=== PATIENT | male | born 1990 | race Caucasian/White ===

== ENCOUNTER 2023-06-02 21:17 | Inpatient (IN) | payer OTHER, SELFPAY ==
[2023-06-02] VITALS (11 sets, daily range): BP systolic 96–122; BP diastolic 60–105; BMI 26.5
--- NOTE | 2023-06-02 16:33 | ED.GENMED ---
History of Present Illness
General
Chief Complaint: Fainting Sensation
Source: patient
Exam Limitations: none
Time Seen by Provider: 06/02/23 16:25
Nursing documentation reviewed up to this point in time: agreed with
History of Present Illness
History of Present Illness:
Patient with history of alcoholism, presents to ED secondary to persistent nausea and vomiting since last alcohol intake 4 days ago. Denies fever or chills. Denies chest pain. Patient reporting shortness of breath along with sensation of 'cold'.
Denies diarrhea. Denies trauma. Per paramedics, patient reportedly had specks of blood with his vomiting episodes today. In addition, during transport to the stretcher, patient had 1 brief episode of syncope, with spontaneous resolution. Patient
was found to be pale and extremely tachycardic at scene. Patient was given Zofran, Ativan, and IV fluids, in route to the hospital.
Past History
Past History
ED Past Medical History: Psychiatric (Depressed. Not suicidal)
ED Past Surgical History: Orthopedic
Review of Systems
Review of Systems
Allergies reviewed?: Yes
All Other Systems: ROS reviewed and negative except as documented in HPI and ROS
Constitutional: Reports no symptoms; Denies fever
EENT: Reports no symptoms
Respiratory: Reports trouble breathing; Denies cough
Cardiac: Reports syncope
ABD/GI: Reports nausea and vomiting
: Reports no symptoms
Musculoskeletal: Reports no symptoms
Skin: Reports no symptoms
Neurological: Reports dizzy and weakness
Phy Exam
Physical Exam
Physical Exam:
Physical Exam
General: mild distress, acutely ill. afebrile. tachycardic. pale
Head: nc/at. eomi
Neck: supple. no meningeal signs. normal posterior pharynx
Heart: tachycardic, no murmur. equal radial pulses.
Lungs: no acute respiratory distress. clear bilaterally
Abdomen: normal bowel sounds. not tender. rectal exam : brown stool, heme negative
Neuro: alert and oriented. no focal neurological deficits
Skin: no rash
Psychiatric: well kept. interactive and cooperative
Extremities: no edema. no calf tenderness.
Course
Orders/Labs/Results
Orders:
Orders
06/02/23 Dinner
NPO
Allow oral meds: No
Allow clear liquids: No
NPO with Ice Chips: No
06/02/23 16:31
EKG [Electrocardiogram (*1)] Urgent
Reason for Study: Syncope
06/02/23 16:43
Type+Screen Urgent
B-Hydroxybutyrate Urgent
Comment: ADD ON
Complete Blood Count/With Diff Urgent
Comprehensive Metabolic Panel Urgent
Lipase Urgent
Magnesium Urgent
Comment: ADD ON
PTT Urgent
Phosphorus Urgent
Comment: ADD ON
Prothrombin Time Urgent
06/02/23 17:00
0.9% Sodium Chloride 1000 ml [Nss] 1,000 ml IV BOLUS
06/02/23 19:14
Add On- LAB Urgent
Tests Added?: Beta-hydroxybutyrate
06/02/23 19:47
Pantoprazole [Protonix IV] 40 mg IV NOW STA
06/02/23 19:53
Octreotide [Sandostatin] 50 mcg IV NOW STA
06/02/23 20:00
0.9% Sodium Chloride 1000 ml [Nss] 1,000 ml Mvi, Adult [Multivitamin] 10 ml Thiamine Injection 100 mg IV 100 mls/hr
06/02/23 20:18
Octreotide Acetate [Sandostatin] 600 mcg 0.9% Sodium Chloride 500 ml [Nss] 500 ml IV NOW
06/02/23 20:43
Insulin Human Regular [Novolin R] 5 units IV NOW STA
06/02/23 20:45
Add On- LAB Urgent
Tests Added?: mag , phos
0.9% Sodium Chloride 1000 ml [Nss] 1,000 ml IV 1,000 mls/hr
Pantoprazole 80 mg/100 ml Nss [Protonix] 80 mg in 100 ml IV Q10H
06/02/23 20:46
Admit/Transfer Patient As Directed
Co-Sign Provider:
Level of Care: Inpatient admission
Assign to:: IMU- Intermediate Care
Physician / Group: lisa martinez
Diagnosis: upper gi bleed , etoh abuse, alcoholic ketoacidosis
Reason for Hospitalization: upper gi bleed , etoh abuse, alcoholic ketoacidosis
Expected length of stay greater than two midnights?: Yes
ELOS- Estimated Length of Stay in days: 4
I certify the patient meets the requirements for IP care: Yes
06/02/23 20:48
Code Status As Directed
Resuscitation Status: Full Code
06/02/23 20:49
Ondansetron Injectable [Zofran] 4 mg .ROUTE .STK-MED ONE
Ondansetron Injectable [Zofran] 4 mg IV NOW STA
06/02/23 20:50
GASTROINTESTINAL CONSULT Routine
Consulting Provider: Juan Manuel Snyder
Was physician already notified: Yes
Reason for consult: upper gi bleed etoh abuse
06/02/23 22:59
0.9% Sodium Chloride [Nss (Preservative Free)] See Protocol IV PRN PRN
Dextrose 50%-Water [Dextrose 50% Syringe] 12.5 grams IV [id number] PRN
FOLic ACID [Folvite] 1 mg 0.9% Sodium Chloride 50 ml [Nss] 50 ml IV DAILYPRN
Glucagon [GlucaGen] 1 mg IM PRN PRN
Lorazepam [Ativan] 1 mg IV Q1HPRN PRN
Lorazepam [Ativan] 1 mg PO Q2HPRN PRN
Lorazepam [Ativan] 2 mg IV Q1HPRN PRN
Ondansetron Injectable [Zofran] 4 mg IV Q6HPRN PRN
06/02/23 22:59
Case Management Consult Once
Case Management Consult: Other
Comment: Substance abuse counseling
DIETARY CONSULT Routine
Reason for Consult: Nutrition support, possible refeeding guidelines
GGTP Urgent
PTT Urgent
Prothrombin Time Urgent
Urinalysis Routine
Urine Drug Abuse Screen Routine
Activity As Directed
Activity Level: As Tolerated
Bedside Glucose Monitoring As Directed
Frequency: AC&HS
Comment: Change to q6h if pt on TPN, tube feeding or not eating
Intake/ Output As Directed
Frequency: Per unit guidelines
MSAS SCORE As Directed
MSAS Score 0-4: Repeat MSAS every 2 hours until 0-4 for three consecutive assessments, then every 4 hours x 48
hours.
MSAS Score 5-7: For MILD withdrawl symptoms. Repeat MSAS and RASS every 2 hours
MSAS Score 8-11: For MODERATE withdrawal symptoms. Repeat MSAS and RASS every 1 hour. Consider ICU or IMU
level of care.
MSAS Score > 11: For SEVERE withdrawal symptoms. Repeat MSAS and RASS every 1 hour. Notify provider, consider
ICU level of care.
MSAS Additional Instructions: If no improvement or no decrease in score from severe to moderate within 12
hours, consult psychiatry
MSAS Notify Provider: Notify provider if patient requires more than 10 mg of Lorazepam in eight hour period.
Pneumatic Compression Sleeves As Directed
Type: Knee high
Vital Signs As Directed
Frequency: Per unit guidelines
Ot Eval And Treat Routine
Pt Eval And Treat Routine
Activity Level: As Tolerated
DX Deep Vein Thrombosis Video Routine
06/03/23 00:00
Thiamine Injection 200 mg IV Q8
06/03/23 01:00
H&H Q8H
06/03/23 06:00
Complete Blood Count/With Diff IN AM
Comprehensive Metabolic Panel IN AM
Glycohemoglobin (HgbA1c) IN AM
06/03/23 07:30
Insulin Aspart Corrective Low [Novolog Flexpen-Low Resistance] See Protocol SC AC
06/03/23 08:00
FOLic ACID [Folvite] 1 mg PO DAILY
06/03/23 09:00
H&H Q8H
06/03/23 17:00
H&H Q8H
06/04/23 01:00
H&H Q8H
06/04/23 06:00
Complete Blood Count/With Diff IN AM
Comprehensive Metabolic Panel IN AM
06/05/23 06:00
Complete Blood Count/With Diff IN AM
Comprehensive Metabolic Panel IN AM
06/06/23 06:00
Complete Blood Count/With Diff IN AM
Comprehensive Metabolic Panel IN AM
06/06/23 08:00
Thiamine HCl [Vitamin B1] 100 mg PO BID
Abnormal Lab Results
06/02/23
16:43
WBC 11.1 H 10^3/uL
(4.8-10.8)
RBC 2.60 L 10^6/uL
(4.70-6.10)
Hgb 8.8 L g/dL
(13.0-18.0)
Hct 25.5 L %
(39.0-52.0)
MCV 98.1 H fL
(80.0-94.0)
MCH 33.8 H pg
(27.0-31.0)
MPV 10.6 H fL
(7.4-10.4)
Abs Immat Gran (auto) 0.1 H 10^3/uL
(0-0.05)
Absolute Neuts (auto) 9.0 H 10^3/uL
(1.4-6.5)
Immature Gran % 0.7 H %
(0-0.5)
Neutrophils % 80.9 H %
(42.2-75.2)
Lymphocytes % 12.5 L %
(20.5-51.1)
PT 15.5 H Sec
(11.4-14.6)
Sodium 131 L mmol/L
(135-145)
Carbon Dioxide 10 L* mmol/L
(22-30)
BUN 48 H mg/dl
(9-20)
Glucose 356 H mg/dl
(70-99)
Calcium 8.3 L mg/dl
(8.4-10.2)
Phosphorus 6.3 H mg/dl
(2.5-4.5)
AST 81 H U/L
(17-59)
ALT 90 H U/L
(0-50)
Total Protein 5.9 L g/dl
(6.3-8.2)
B-Hydroxybutyrate 1.51 H mmol/L
(0.02-0.27)
06/02/23 16:43
06/02/23 16:43
Vital Signs
Initial and Last Documented VS:
Initial Vital Signs
BP
103/70
06/02/23 16:26
Last Documented Vital Signs
Temp Pulse Resp BP Pulse Ox
98.7 F 137 18 99/75 99
06/02/23 23:00 06/02/23 23:13 06/02/23 23:13 06/02/23 23:13 06/02/23 23:13
MDM/Problems Addressed
MDM/Problems Addressed:
H/H noted, along with abnormal electrolytes. Patient with likely alcoholic ketoacidosis. Patient will be admitted for further evaluation and treatment.
Transfusion consent on the chart.
Discussed with GI () via [employer]. Recommends octreotide treatment.
Critical care statement: A total of 40 minutes of critical care time was provided for this patient. This includes management of unstable vital signs, evaluation of the patient at bedside, reviewing the patient's pertinent medical records, discussion
with consultants, review of old EKGs and review of pertinent medical records. This time with separate from time utilized to perform the aforementioned documented procedures
*EKG
Interpreted by ED Provider?: Yes
EKG Intrepretation Date: 06/02/23
Heart Rate: 153
Rate: tachycardiac
Rhythm: sinus
Ottosen: normal axis
Interval: normal interval and normal QT interval
QRS Pattern: normal QRS
*Critical Care Note
Total Time (30-74mins, 75-104mins- exclusive of procedures): 40 min
ED Attending Note
-
Portions of this chart may have been created with voice recognition software.� Occasional wrong word or��sound alike� substitutions may have occurred due to the inherent limitations of voice recognition software.
Discharge Plan
Departure
Patient Disposition: Admit
Date of Disposition: 06/02/23
Time of Disposition: 19:52
Admit to: ICU
Presentation/result/management discussed w/ accepting MD/DO: Hospitalist
Discharge Problem:
Hematemesis, Acute alcoholic gastritis, Anemia
Interventions
Interventions:
*Risk Screen - Suicide Last Done: 06/02/23 23:07
*General Assessment Last Done: 06/02/23 16:41
*Neglect/Abuse Screening Last Done: 06/02/23 16:41
ED- Fall Risk Assessment Last Done: 06/02/23 16:43
*ED COVID-19 Vaccine History Last Done: 06/02/23 16:41
*Nursing Disposition Last Done: 06/02/23 23:09
ED- Cardiac Assessment Last Done: 06/02/23 16:43
ED- Neurological Assessment Last Done: 06/02/23 16:43
Discharge Date and Time
Discharge Date/Time: 06/02/23 23:10
[2023-06-02 16:53] LABS: % Basophils 0.3 % (0-2); % Eosinophils 0.1 % (0-6); % Immature Granulocytes 0.7 % (0-0.5); % Lymphocytes 12.5 % (20.5-51.1); % Monocytes 5.5 % (1.7-9.3); % Neutrophils 80.9 % (42.2-75.2); Absolute Immature Granulocytes 0.1 10^3/uL (0-0.05); Absolute Lymphocytes 1.4 10^3/uL (1.2-3.4); Absolute Monocytes 0.6 10^3/uL (0.1-0.6); Hematocrit 25.5 % (39.0-52.0); Hemoglobin 8.8 g/dL (13.0-18.0); Mean Corp Hgb Conc. 34.5 g/dL (33.0-37.0); Mean Corpuscular Hgb 33.8 pg (27.0-31.0); Mean Corpuscular Volume 98.1 fL (80.0-94.0); Mean Platelet Volume 10.6 fL (7.4-10.4); Nucleated Red Blood Cells % 0 % (-); Platelet Count 247 10^3/uL (130-400); Red Cell Dist. Width 12.5 % (11.5-14.5); White Blood Cell Count 11.1 10^3/uL (4.8-10.8)
[2023-06-02] MEDS: NSS 1000 IV ×2 (17:01→21:12)
[2023-06-02 17:04] LABS: INR 1.25; PT 15.5 Sec (11.4-14.6)
[2023-06-02 17:05] LABS: APTT 27.1 Sec (23.4-35.0)
[2023-06-02 17:18] LABS: AST (SGOT) 81 U/L (17-59); Albumin 3.8 g/dl (3.5-5.0); Alkaline Phosphatase 40 U/L (38-126); Blood Urea Nitrogen 48 mg/dl (9-20); Calcium 8.3 mg/dl (8.4-10.2); Carbon Dioxide 10 mmol/L (22-30); Chloride 99 mmol/L (98-107); Estimated Creatinine Clearance 97 ml/min; Glucose 356 mg/dl (70-99); Lipase 77 U/L (23-300); Potassium 4.7 mmol/L (3.5-5.1); Sodium 131 mmol/L (135-145); Total Bilirubin 1.3 mg/dl (0.2-1.3); Total Protein 5.9 g/dl (6.3-8.2); eGFR > 60.00
[2023-06-02 17:27] LABS: ALT (SGPT) 90 U/L (0-50)
[2023-06-02] MEDS: MULTIVITAMIN 1011 ML IV (20:00)
[2023-06-02] MEDS: MULTIVITAMIN 1011 MG IV (20:00)
--- NOTE | 2023-06-02 20:03 | HPS.HSE ---
Addendum entered and electronically signed by Emily Bowers MD 06/02/23 21:58:
Patient seen and evaluated with JESÚS. Agree with findings and H&P and agree with the assessment and plan as stated in the note.
Briefly this is a 33-year-old with history of alcohol dependence and binge drinking who presents to the emergency department after 4 days of persistent nausea and vomiting. Her last drink was around 3 days ago. He had bloody emesis with dark black
clots 3-4 times a day in the time. In addition to alcohol patient is also taking Advil daily. Noted to have a history of alcohol abuse with withdrawal seizures, alcohol gastritis transaminitis. No known history of cirrhosis.
On arrival in the ED the patient was tachycardic to 153, normotensive with oxygen saturation of 100%. He was tremulous. ECG with sinus tachycardia no acute ST or T wave changes. His labs are notable for hemoglobin of 8.8 which is down from around
12 his baseline. INR was 1.2. He had a bicarb of 10 glucose of 356 and a BUN of 40 with a creatinine of 1.2. AST 81 ALT 90.
Suspect acute upper GI bleed due to alcoholic gastritis and NSAIDS vs peptic ulcer. Unlikely varices. Likely active ongoing bleeding given tachycardia.
- IMU admission. NPO. PPI gtt. Octroetide gtt
- type and screen transfuse 1 unit now and for Hgb > 8
- 2 L iv fluids then maintenance
- h&H q 8
- GI notified
ETOH withdrawal - 3 days since last drink. Lower risk.
- lorazepam CIWA protocol
- iv thiamine, folate
Severe metabolic acidosis with anion gap. Glucose elevated to 325. Suspected AKA and less-likely DKA but labs suggestive of new onset DM.
- insulin 5 units x 1 after 2 L bolus
- sliding scale insulin q6 for now and monitor gap with chemistry q8.
- a1c in am
- continue aggressive hydration for AKA.
Full code
Original Note:
Family Physician
-
Family Physician: JESÚS Alexander
Chief Complaint
-
Nausea, vomiting, tachypnea, alcohol abuse
History of Present Illness
33-year-old male with persistent nausea and vomiting over the past 4 days. He had brief episode of sync[facility] He was given IV Ativan Zofran and fluids en route to the
hospital by EMS. He reports vomiting dark black clots 3-4 times a day he also reports taking nightly Advil PM 2 tablets every evening 400 mg total. He has history of alcohol abuse . His last drink was 3 days ago on he typically drinks a
liter of vodka over 3-day.He has past medical history of alcohol abuse/alcohol withdrawal seizure April 2022, alcohol gastritis, DTs, chronic transaminitis.
Medical History
Past Medical History
Past Medical History: Reports HTN and Other (Alcohol abuse, alcohol withdrawal seizure April 2022, HTN, alcoholic gastritis)
Past Surgical History: Reports Orthopedic (Right foot tendon repair)
Social History
Tobacco: Non-smoker
Alcohol: Daily (Drinks 1 L bottle of vodka over 3 days)
Drug: None
Personal: Single
Living: With Family
Employment: Not Employed
Family History
Family History: Other (Father DM2)
Allergies / Home Medications
Allergies reflects when Allergies were last updated in [employer].
Home Medications with original date entered in [employer]
Allergy/Medication List:
Allergies
Allergy/AdvReac Type Severity Reaction Status Date / Time
No Known Allergies Allergy Verified 06/02/23 16:29
Home Medications
folic acid 1 mg tablet 1 mg PO DAILY #12 tabs 05/05/22
multivitamin 1 tab PO DAILY #30 tabs 05/05/22
ascorbic acid (vitamin C) 500 mg tablet (Vitamin C) 500 mg PO DAILY 06/02/23
cholecalciferol (vitamin D3) 1 tab PO DAILY PRN supplement 06/02/23
cyanocobalamin (vitamin B-12) 1,000 mcg tablet 1,000 mcg PO DAILY 06/02/23
ibuprofen-diphenhydramine citrate 200 mg-38 mg tablet (Advil PM) 2 tab PO HS 06/02/23
lisinopril 10 mg tablet 20 mg PO DAILY 06/02/23
thiamine HCl (vitamin B1) 100 mg tablet 100 mg PO DAILY 06/02/23
Review of Systems
-
History Source: Patient and Family (Mother at bedside)
A 12 point ROS was completed and negative except as noted: Yes
Constitutional: Reports Fatigue; Denies Fever
EENT: Denies Sore Throat or Runny Nose
Respiratory: Denies Cough or Trouble Breathing
Cardiac: Reports Palpitations; Denies Chest Pain, Diaphoresis or Syncope
Abdomen/GI: Reports Abdominal Pain (Right upper quadrant), Nausea, Vomiting, Constipated and Other (Vomiting clots 3-4 times today); Denies Diarrhea
: Denies Dysuria, Frequency, Flank Pain, Incontinence, Difficulty Voiding or Urgency
Musculoskeletal: Denies Joint Pain or Edema
Skin: Denies Itching or Rash
Neurological: Denies Dizzy or Headache
Endocrine: Reports No Symptoms
Hematologic/Lymphatic: Reports No Symptoms
Psych: Reports Calm
Physical Exam
Vital Signs
Vital Signs
Temp Pulse Resp BP Pulse Ox
97.8 F 153 27 121/105 100
06/02/23 16:33 06/02/23 19:00 06/02/23 16:45 06/02/23 19:00 06/02/23 19:00
Physical Exam
General: Comfortable and Conversant; No Fever or Chills
HEENT: NormoCephalic, Anicteric, No Ptosis and Other (Dry oral mucosa)
Respiratory: Clear; No Wheezes, Rales or Rhonchi
Cardiac: S1/S2 and Tachycardia (Sinus tachycardia); No Murmur, Rub, Gallop or Peripheral Edema
Breast: Deferred by me
GI: Soft, Non Distended, Normal Bowel Sounds and Tender (Right upper quadrant)
Rectal: Hem Negative (Brown Per, ER)
Genito-urinary: Deferred by me
Musculoskeletal: No Clubbing, No Cyanosis and No Edema
Skin: Warm and Dry; No Rash
Neuro: AO x 3, No Motor Deficits, Nonfocal/grossly intact and No Sensory Deficits; No Slurred Speech, Facial Droop or Tremors
Psych: Calm
Laboratory Results
-
06/02/23 16:43
06/02/23 16:43
Laboratory Results
PT 15.5 Sec (11.4-14.6) H 06/02/23 16:43
INR 1.25 06/02/23 16:43
APTT 27.1 Sec (23.4-35.0) 06/02/23 16:43
Total Bilirubin 1.3 mg/dl (0.2-1.3) 06/02/23 16:43
AST 81 U/L (17-59) H 06/02/23 16:43
ALT 90 U/L (0-50) H 06/02/23 16:43
Alkaline Phosphatase 40 U/L (38-126) 06/02/23 16:43
Lipase 77 U/L (23-300) 06/02/23 16:43
Data Reviewed
-
Lab Data: Labs Reviewed by me
Impression/Plan
-
Impression/plan:
Admit to IMU
#Acute anemia/hematemesis suspect upper GI bleed 2/2 alcoholic gastritis/poss bleeding ulcer
Hgb 8.8 was 14.2 05/05/2022
Stool heme brown negative
-Consult GI
-Octreotide drip
-N.p.o.
-IV PPI drip
-Follow H&H every 8 hours
-Type and screen obtained
#Alcoholic ketoacidosis
BS> 356, anion gap 22
-Check magnesium, phosphate
-IV thiamine, IV folate
Iv banana nag given in ER , 1 liter NSS
-Insulin 5 units regular now Accu-Cheks with SSI low
#Alcohol abuse history of alcohol withdrawal/alcohol withdrawal seizures
#Last withdrawal seizure April 2022
#Hx of DTs
Last drink 3 days ago typically drinks 1 L of vodka every 3 days
MSAs screen protocol
-IV thiamine, IV folate
#HTN
BP 121/105
Hold lisinopril
#Tachycardia secondary to volume depletion/alcohol withdrawal/ketoacidosis
EKG sinus tach 153 bpm, QTc 526 MS
-IV total 2 L followed by IV banana bag
#Chronic transaminitis
Follow CMP
DVT prophylaxis
SCDs
Full code
[2023-06-02 20:20] LABS: B-Hydroxybutyrate 1.51 mmol/L (0.02-0.27)
[2023-06-02] MEDS: SANDOSTATIN 500.600000000000023 MCG IV (20:37)
[2023-06-02] MEDS: SANDOSTATIN 50 MCG IV (20:37)
[2023-06-02] MEDS: PROTONIX IV 40 MG IV (20:37)
[2023-06-02] MEDS: NOVOLIN R 5 UNITS IV (21:10)
[2023-06-02] MEDS: ZOFRAN 4 MG IV (21:11)
[2023-06-02 21:44] LABS: Magnesium 2.1 mg/dl (1.6-2.3); Phosphorus 6.3 mg/dl (2.5-4.5)
[2023-06-02] MEDS: PROTONIX 100 IV (21:51)
[2023-06-02 22:15] LABS: Glucose - Point of Care 75 mg/dl (70-99)
[2023-06-02] MEDS: THIAMINE INJECTION 200 MG IV (23:58)
[2023-06-03] VITALS (32 sets, daily range): BP systolic 15–147; BP diastolic 60–97; PULSE 102–168; O2SAT 97; BMI 26.5
[2023-06-03] MEDS: ATIVAN 1 MG IV ×2 (00:06→09:59)
--- NOTE | 2023-06-03 00:30 | PTCARENOTE ---
PT from ED with Protonix, banana bag and Octreotide hanging. Pt able to complete assessment with RN. Pt appearing pleasant and cooperative. MSAS completed,score 5. Pt NPO, night SENIOR MATERIALS SCIENTIST placed new order for Ativan to be IV for score of 5. Assessment care
and vitals as charted.
[2023-06-03 00:45] LABS: GGTP 96 U/L (15-73)
[2023-06-03 01:43] LABS: Hematocrit 18.8 % (39.0-52.0); Hemoglobin 6.8 g/dL (13.0-18.0)
[2023-06-03 01:52] LABS: Amphetamines Negative (Negative); Barbiturates Negative (Negative); Benzodiazepines Positive (Negative); Buprenorphine Negative (Negative); Cocaine Negative (Negative); Marijuana Negative (Negative); Methadone Negative (Negative); Methamphetamines Negative (Negative); Opiates Negative (Negative); Phencyclidine Negative (Negative); Tricyclic Antidepressants Negative (Negative)
[2023-06-03 02:00] LABS: Urine Albumin Negative (Neg - Trace); Urine Bilirubin Negative (Negative); Urine Character Clear (Clear); Urine Color Yellow; Urine Glucose 1+ (Negative); Urine Ketone 2+ (Negative); Urine Leukocyte Negative (Negative); Urine Nitrite Negative (Negative); Urine Occult Blood Negative (Negative); Urine Urobilinogen Negative (Neg - 1+)
[2023-06-03 02:02] LABS: APTT 27.9 Sec (23.4-35.0); INR 1.18; PT 14.8 Sec (11.4-14.6)
[2023-06-03 02:08] LABS: Fentanyl, Urine Negative (Negative)
--- NOTE | 2023-06-03 02:44 | PTCARENOTE ---
Pt follow up H&H 6.8/18.8. Night WASHER ENGINEER HELPER made aware, 2 units PRBC ordered. Pt vitals 103/71, HR 104, temp 98.4 RR15, SPO2 97% RA. Pt MSAS last score 4.
--- NOTE | 2023-06-03 02:49 | PTCARENOTE ---
Addendum entered by Herlinda Hastings RN 06/03/23 07:51:
Pt has 3 IVs, Night SECURITY ENGINEER TT about pausing one with NS w/vit to start blood transfusion.
Original Note:
Pt follow up H&H 6.8/18.8. Night SECURITY ENGINEER made aware, 2 units PRBC ordered. Education given to Pt. Pt vitals 103/71, HR 104, temp 98.4 RR15, SPO2 97% RA. Pt MSAS last score 4.
[2023-06-03 06:35] LABS: Glucose - Point of Care 115 mg/dl (70-99)
[2023-06-03 07:01] LABS: ALT (SGPT) 89 U/L (0-50); AST (SGOT) 83 U/L (17-59); Albumin 3.6 g/dl (3.5-5.0); Alkaline Phosphatase 34 U/L (38-126); Blood Urea Nitrogen 40 mg/dl (9-20); Carbon Dioxide 20 mmol/L (22-30); Chloride 105 mmol/L (98-107); Estimated Creatinine Clearance 116 ml/min; Glucose 108 mg/dl (70-99); Potassium 4.3 mmol/L (3.5-5.1); Sodium 135 mmol/L (135-145); Total Bilirubin 1.1 mg/dl (0.2-1.3); Total Protein 5.7 g/dl (6.3-8.2); eGFR > 60.00
[2023-06-03] MEDS: PROTONIX 100 IV (07:02)
--- NOTE | 2023-06-03 08:13 | W.PN.HOSP.TC ---
Today's Communication/Plan
-
see bold
Assessment / Plan
Assessment / Plan
Gen: NAD, AAOx3.
Eyes: EOMI, PERRLA, no scleral icterus.
Neck: supple.
CV: tachy, reg rhythm, +S1/S2, no m/r/g.
Resp: CTAB, no rales, wheezes, or rhonchi.
Abd: +BS, soft, NT, ND
Skin: No rashes.
Neuro: CN 2-12 intact, non-focal.
Psych: Normal mood and affect.
Acute blood loss anemia due to acute upper GI bleed likely due to alcoholic gastritis and NSAIDS vs peptic ulcer:
-cont PPI gtt, NPO
-was on Octreotide gtt, no off
-cont IVFs
-trend Hb
-s/p 2U pRBCs
-EGD today as per discussion with Dr. Snyder
Acute ETOH withdrawal:
-MSAS protocol (Ativan PRN)
-cont thiamine/folate
Severe anion gap metabolic acidosis:
-likely starvation ketosis
-AG now closed
-SSI/accuchecks
-no prior diagnosis of DM2, a1c pending
FULL/SCDs
Total time spent on today's encounter was 50 minutes which included time spent in counseling the patient/family regarding diagnosis and treatment plan as listed above, goals of care, and symptom management. Case was discussed with nursing staff,
specialists, and care coordinators/case management. All labs and imaging personally reviewed by me. Remainder the time spent in detailed review of previous records, lab data, imaging, and other medical provider documentation.
Anticipated Discharge: > 48 hours
Subjective/Interval History
-
Date of Service: June 03, 2023
Denies diaphoresis/AH/VH. Reports dark stool this AM.
Objective Data
-
Labs:
Laboratory Results
06/03/23 06/03/23 06/03/23
01:23 06:00 06:30
WBC Pending
Hgb 6.8 L* D Pending
Hct 18.8 L* Pending
Plt Count Pending
PT 14.8 H
INR 1.18
APTT 27.9
Sodium 135
Potassium 4.3
Chloride 105
Carbon Dioxide 20 L
BUN 40 H
Creatinine 1.0
Glucose 108 H
Calcium 8.0 L
Total Bilirubin 1.1
AST 83 H
ALT 89 H
Alkaline Phosphatase 34 L
06/03/23 06/03/23
09:00 17:00
WBC
Hgb Pending Pending
Hct Pending Pending
Plt Count
PT
INR
APTT
Sodium
Potassium
Chloride
Carbon Dioxide
BUN
Creatinine
Glucose
Calcium
Total Bilirubin
AST
ALT
Alkaline Phosphatase
Vital Signs:
Vital Signs
Temp Pulse Resp BP Pulse Ox
99.4 F 95 14 115/75 95
06/03/23 08:03 06/03/23 08:03 06/03/23 08:03 06/03/23 08:03 06/03/23 08:03
I&O
06/02/23 06/03/23 06/04/23
06:59 06:59 06:59
Intake Total 1150 / 1150 250 / 250
Output Total 1150 / 1150
Balance 0 / 0 250 / 250
--- NOTE | 2023-06-03 08:14 | PTCARENOTE ---
Addendum entered by Georgina Marcus RN 06/03/23 19:37:
Two units PRBC's
Original Note:
Patient received to units of PRBC's without incident. Patient MSAS score 4. Patient AAOX3 alert,calm and pleasant. Vital signs stable. Sp02 96% on room air. Patient denies abdominal pain or nausea. Protonix drip and fluids infusing as ordered.
EGD today. Will monitor.
[2023-06-03 09:05] LABS: Glucose - Point of Care 109 mg/dl (70-99)
--- NOTE | 2023-06-03 09:21 | CON.GI ---
Addendum entered and electronically signed by Juan Manuel Snyder MD 06/03/23 09:49:
I saw and examined the patient.
The FAMILY MEDIATOR or PA's note was reviewed and I agree with the note.
Comment: 33yo male presents with hematemesis. He drinks alcohol regularly and friend convinced him to quit and he stopped. Then began with vomiting several times bringing up bilious material, then blood clot/black material. Hgb 8.8 on
admission, dropped to 6.8. He takes Advil PM as well to help with sleep. US shows hepatomegaly and fatty liver. INR and plt count normal
REC:
Octreotide started initially, can stop if EGD shows no varices
EGD today, possible Lucrecia-Chung tear or ulcer
Encouraged him to continue EtOH abstinence
Original Note:
Consultation
-
Date/Time Consultation Requested: 06/02/232049
Date/Time Consultation Performed: 06/03/23829
Requesting Provider: JESÚS Hernandez
Performing Provider: Dr. Snyder/JESÚS Bell
Reason for Consultation: GI bleed
Medical History
Chief Complaint / HPI
Chief Complaint: syncope
History of Present Illness:
33-year-old male with past medical history of hypertension, ETOH withdrawal seizure and alcohol abuse presents to the emergency room with hematemesis as well as persistent vomiting and near syncope. Patient states that he has a prolonged history of
alcoholism drinking over a gallon of vodka a week and that on he decided to try to quit again. He states he started going through withdrawal symptoms on Saturday. He states he started to have tremors and started vomiting. He states that
this was initially bilious and that on Saturday he started to note that he had black specks in it. He started having shakes and chills even more pronounced and he started feeling like he was going to faint. At this point he was brought to the
emergency room. Patient also states that for the past week he has been taking 2 Advil PM every evening to help him sleep. The patient also had melena this morning. Whereas he had not had a bowel movement in over a week. His hemoglobin has gone
down to 6.8 from 8.8 on arrival. He has received 1 unit of packed red blood cells and we are awaiting repeat CBC at this time. His prior hemoglobin in April 2022 was 14.2. His platelet count is 247, INR is 1.8, BUN is 40 down from 48, total
bilirubin is 1.1 down from 1.3, AST is 83 up from 81, ALT is 89 down from 90 alk phos is 34 down from 40. Lipase is 77. Patient's labs also showed severe metabolic acidosis with anion gap. He was also given significant IV hydration with 2 L IV
fluid bolus. He does have ketones as well. The patient is not tremulous at this time. He denies any fevers, hematochezia, dysphagia or odynophagia. He denies any early satiety or unintentional weight loss. He does state that he is currently
without a job and he is living with his parents and his father who has ALS. The patient has had no prior GI bleeds. He has never had an endoscopy or colonoscopy. He states that he tried to become sober a couple months back but then 'fell off the
wagon' about 1 to 2 months ago.
Past Medical History
Past Medical History: HTN, Seizures (ETOH withdrawal) and Other (ETOH abuse)
Past Surgical History: Other (left foot tendon repair)
Social History
Tobacco: Non-Smoker
Alcohol: Chronic Alcoholic
Drug: None
Personal: Single
Living: With Family
Employment: Not Employed
Family History
Family History: Other (No fam Hx of GI malignancy or IBD)
Allergies / Home Medications
Allergy/AdvReac Type Severity Reaction Status Date / Time
No Known Allergies Allergy Verified 06/02/23 16:29
Medication Instructions Recorded
folic acid 1 mg tablet 1 mg PO DAILY #12 tabs 05/05/22
multivitamin 1 tab PO DAILY #30 tabs 05/05/22
ascorbic acid (vitamin C) 500 mg 500 mg PO DAILY Supplement 06/02/23
tablet (Vitamin C)
cholecalciferol (vitamin D3) 1 tab PO DAILY PRN supplement 06/02/23
cyanocobalamin (vitamin B-12) 1,000 mcg PO DAILY Supplement 06/02/23
1,000 mcg tablet
ibuprofen-diphenhydramine citrate 2 tab PO HS Sleep 06/02/23
200 mg-38 mg tablet (Advil PM)
lisinopril 10 mg tablet 20 mg PO DAILY Blood Pressure 06/02/23
thiamine HCl (vitamin B1) 100 mg 100 mg PO DAILY Supplement 06/02/23
tablet
Review of Systems
-
All other systems: A 12 pt ROS was Negative except as stated above in HPI
Vital Signs
Temp Pulse Resp BP Pulse Ox
99.4 F 95 14 115/75 95
06/03/23 08:03 06/03/23 08:03 06/03/23 08:03 06/03/23 08:03 06/03/23 08:03
Physical Exam
Exam
General: No Apparent Distress
HEENT: Anicteric
Respiratory: Clear
Cardiac: Regular Rhythm (HR 100)
GI: Soft, Non Tender, Non Distended and Normal Bowel Sounds
Musculoskeletal: No Edema
Skin: Warm and Dry
Neuro: AO x 3
Psych: Calm
Results
WBC 11.1 10^3/uL (4.8-10.8) H 06/02/23 16:43
Hgb 6.8 g/dL (13.0-18.0) L* D 06/03/23 01:23
Hct 18.8 % (39.0-52.0) L* 06/03/23 01:23
MCV 98.1 fL (80.0-94.0) H 06/02/23 16:43
Plt Count 247 10^3/uL (130-400) 06/02/23 16:43
Absolute Neuts (auto) 9.0 10^3/uL (1.4-6.5) H 06/02/23 16:43
PT 14.8 Sec (11.4-14.6) H 06/03/23 01:23
INR 1.18 06/03/23 01:23
APTT 27.9 Sec (23.4-35.0) 06/03/23 01:23
Sodium 135 mmol/L (135-145) 06/03/23 06:30
Potassium 4.3 mmol/L (3.5-5.1) 06/03/23 06:30
Chloride 105 mmol/L (98-107) 06/03/23 06:30
Carbon Dioxide 20 mmol/L (22-30) L 06/03/23 06:30
BUN 40 mg/dl (9-20) H 06/03/23 06:30
Creatinine 1.0 mg/dL (0.7-1.3) 06/03/23 06:30
Calcium 8.0 mg/dl (8.4-10.2) L 06/03/23 06:30
Total Bilirubin 1.1 mg/dl (0.2-1.3) 06/03/23 06:30
AST 83 U/L (17-59) H 06/03/23 06:30
ALT 89 U/L (0-50) H 06/03/23 06:30
Alkaline Phosphatase 34 U/L (38-126) L 06/03/23 06:30
Lipase 77 U/L (23-300) 06/02/23 16:43
Diagnostic Image Results:
none currently
Prior GI Procedures:
EGD: none
Colonoscopy: none
Assessment / Plan
-
33-year-old male with past medical history of hypertension, ETOH withdrawal seizure and alcohol abuse presents to the emergency room with hematemesis as well as persistent vomiting and near syncope. Patient states that he has a prolonged history of
alcoholism drinking over a gallon of vodka a week and that on he decided to try to quit again. He states he started going through withdrawal symptoms on Saturday. He states he started to have tremors and started vomiting. He states that
this was initially bilious and that on Saturday he started to note that he had black specks in it. He started having shakes and chills even more pronounced and he started feeling like he was going to faint. At this point he was brought to the
emergency room. Patient also states that for the past week he has been taking 2 Advil PM every evening to help him sleep. The patient also had melena this morning. Whereas he had not had a bowel movement in over a week. His hemoglobin has gone
down to 6.8 from 8.8 on arrival. He has received 1 unit of packed red blood cells and we are awaiting repeat CBC at this time.
Impression:
Upper GI Bleed
ETOH abuse/withdrawal
Metabolic acidosis
Plan:
-EGD today
-Await repeat CBC, last Hgb 6.8-> had 1 unit PRBC transfused awaiting follow up.
-Continue Pantoprazole gtt
-Continue Octreotide gtt for now
-Continue ETOH withdrawal protocol
-Discussed avoidance of NSAIDs
-Also discussed ETOH cessation at length
-Further recommendations post EGD.
-
-
Thank you for consultation and allowing me to participate in the patient's care. Please call the neon molder GI physician during the after hours with any questions or concerns.
[2023-06-03 09:59] LABS: % Basophils 0.7 % (0-2); % Immature Granulocytes 0.4 % (0-0.5); % Lymphocytes 18.2 % (20.5-51.1); % Monocytes 7.2 % (1.7-9.3); % Neutrophils 73.5 % (42.2-75.2); Absolute Basophils 0.1 10^3/uL (0-0.2); Absolute Monocytes 0.8 10^3/uL (0.1-0.6); Absolute Neutrophils 7.9 10^3/uL (1.4-6.5); Hematocrit 25.9 % (39.0-52.0); Mean Corp Hgb Conc. 35.1 g/dL (33.0-37.0); Mean Corpuscular Volume 91.2 fL (80.0-94.0); Mean Platelet Volume 11.1 fL (7.4-10.4); Nucleated Red Blood Cells % 0 % (-); Platelet Count 156 10^3/uL (130-400); Red Blood Cell Count 2.84 10^6/uL (4.70-6.10); Red Cell Dist. Width 14.8 % (11.5-14.5); White Blood Cell Count 10.7 10^3/uL (4.8-10.8)
[2023-06-03 10:12] LABS: Hemoglobin 9.1 g/dL (13.0-18.0)
[2023-06-03] MEDS: NSS 1000 IV ×2 (10:43→19:38)
[2023-06-03] MEDS: THIAMINE INJECTION 200 MG IV ×2 (10:44→18:01)
[2023-06-03] MEDS: FOLVITE 50.2000000000000028 MG IV (11:50)
[2023-06-03 12:01] LABS: Glucose - Point of Care 112 mg/dl (70-99)
[2023-06-03] MEDS: FOLVITE PO (12:28)
--- NOTE | 2023-06-03 12:43 | PTCARENOTE ---
Patient off unit to GI lab for EGD.
--- NOTE | 2023-06-03 13:32 | W.PN.UPDATE ---
Update Note
Progress Note Update
EGD done
Small Lucrecia-Chung tear with overlying clot
No active bleeding
REC:
Clears
Advance diet tomorrow
Protonix daily
d/c Octreotide
[2023-06-03 13:46] LABS: Glucose - Point of Care 93 mg/dl (70-99)
[2023-06-03 14:06] LABS: Glycohemoglobin (HgbA1c) 5.3 % (4.0-5.6)
--- NOTE | 2023-06-03 14:15 | PTCARENOTE ---
Patient back from GI lab. AAO X3. Clear liquids ordered. Vital signs stable. MSAS score 3. IV fluids NSS @ 125 mls/hr to continue. Will monitor.
[2023-06-03 18:27] LABS: Glucose - Point of Care 81 mg/dl (70-99)
[2023-06-03 18:36] LABS: Hematocrit 21.6 % (39.0-52.0); Hemoglobin 7.9 g/dL (13.0-18.0)
--- NOTE | 2023-06-03 18:50 | PTCARENOTE ---
Patient tolerating clear liquid diet. MSAS score have been 3 and 4's. Patient ambulated to bathroom with assistance x1. Denies any pain or nausea. Patient's mom in room at bedside.
[2023-06-03] MEDS: TYLENOL 650 MG PO (21:58)
[2023-06-03 22:01] LABS: Glucose - Point of Care 83 mg/dl (70-99)
--- NOTE | 2023-06-03 22:42 | PTCARENOTE ---
Caring for pt overnight. pt aaox3, seems anxious. denies pain. no signs of bleeding, no dizziness. VSS. SR/ST on monitor. contacted JESÚS for tylenol for pt c/o slight DOW. IVF running. no other issues at this time. will monitor.
[2023-06-04] VITALS (18 sets, daily range): BP systolic 95–161; BP diastolic 65–104
[2023-06-04] MEDS: THIAMINE INJECTION 200 MG IV ×3 (00:12→16:36)
[2023-06-04 03:02] LABS: Hematocrit 21.4 % (39.0-52.0); Hemoglobin 7.5 g/dL (13.0-18.0)
[2023-06-04] MEDS: NSS 1000 IV (05:42)
[2023-06-04 06:13] LABS: % Basophils 0.6 % (0-2); % Eosinophils 1.2 % (0-6); % Immature Granulocytes 0.5 % (0-0.5); % Lymphocytes 21.7 % (20.5-51.1); % Monocytes 5.5 % (1.7-9.3); % Neutrophils 70.5 % (42.2-75.2); Absolute Basophils 0.1 10^3/uL (0-0.2); Absolute Eosinophils 0.1 10^3/uL (0-0.7); Absolute Lymphocytes 1.8 10^3/uL (1.2-3.4); Absolute Monocytes 0.4 10^3/uL (0.1-0.6); Absolute Neutrophils 5.7 10^3/uL (1.4-6.5); Hematocrit 21.4 % (39.0-52.0); Hemoglobin 7.3 g/dL (13.0-18.0); Mean Corp Hgb Conc. 34.1 g/dL (33.0-37.0); Mean Corpuscular Hgb 31.9 pg (27.0-31.0); Mean Corpuscular Volume 93.4 fL (80.0-94.0); Mean Platelet Volume 10.7 fL (7.4-10.4); Nucleated Red Blood Cells % 0 % (-); Platelet Count 116 10^3/uL (130-400); Red Blood Cell Count 2.29 10^6/uL (4.70-6.10); Red Cell Dist. Width 15.5 % (11.5-14.5); White Blood Cell Count 8.1 10^3/uL (4.8-10.8)
[2023-06-04 06:33] LABS: ALT (SGPT) 158 U/L (0-50); AST (SGOT) 243 U/L (17-59); Albumin 3.2 g/dl (3.5-5.0); Alkaline Phosphatase 38 U/L (38-126); Blood Urea Nitrogen 12 mg/dl (9-20); Calcium 7.9 mg/dl (8.4-10.2); Carbon Dioxide 22 mmol/L (22-30); Chloride 110 mmol/L (98-107); Estimated Creatinine Clearance > 125 ml/min; Glucose 81 mg/dl (70-99); Potassium 3.7 mmol/L (3.5-5.1); Sodium 137 mmol/L (135-145); Total Bilirubin 0.5 mg/dl (0.2-1.3); Total Protein 5.3 g/dl (6.3-8.2); eGFR > 60.00
[2023-06-04 08:03] LABS: Glucose - Point of Care 88 mg/dl (70-99)
[2023-06-04] MEDS: FOLVITE 1 MG PO (08:12)
[2023-06-04] MEDS: NSS (PRESERVATIVE FREE) 10 ML IV (08:12)
[2023-06-04] MEDS: PROTONIX IV 40 MG IV (08:13)
--- NOTE | 2023-06-04 09:16 | W.PN.GI.CBS2 ---
Addendum entered and electronically signed by Aguila Martinez MD 06/04/23 13:38:
Elevated LFTs likely due to EtOH reviewed with pt
Addendum entered and electronically signed by Aguila Martinez MD 06/04/23 13:36:
I saw and examined the patient.
The PROPERTY CLERK or PA's note was reviewed and I agree with the note.
Comment: 33 yo M pmh EtOH withdrawal sz and EtOH abuse p/w hematemesis s/p EGD yesterday with [facility] with clot with Dr. Snyder.
Slow drift down of Hb today may be equilibration no further bleeding.
Clear liquid diet, PPI gtt, s/p 1 U PRBC, trend H/H, monitor for signs of overt bleeding.
Stressed to pt importance of ETOH cessation.
As below limited by antiemetics with QTc- ordered for tigan prn.
Original Note:
Today's Communication / Plan
-
As per plan
-Continue clears today
Assessment / Plan
-
33-year-old male with past medical history of hypertension, ETOH withdrawal seizure and alcohol abuse presents to the emergency room with hematemesis as well as persistent vomiting and near syncope. Patient states that he has a prolonged history of
alcoholism drinking over a gallon of vodka a week and that on he decided to try to quit again. He states he started going through withdrawal symptoms on Saturday. He states he started to have tremors and started vomiting. He states that
this was initially bilious and that on Saturday he started to note that he had black specks in it. He started having shakes and chills even more pronounced and he started feeling like he was going to faint. At this point he was brought to the
emergency room. Patient also states that for the past week he has been taking 2 Advil PM every evening to help him sleep. The patient also had melena this morning. Whereas he had not had a bowel movement in over a week. His hemoglobin has gone
down to 6.8 from 8.8 on arrival. He has received 1 unit of packed red blood cells and we are awaiting repeat CBC at this time.
Impression:
Upper GI Bleed, Lucrecia-Chung tear seen
ETOH abuse/withdrawal
Metabolic acidosis
Plan:
-Continue clear liquid diet today as patient had a drop in hemoglobin
-Watch for signs of GI bleeding, if patient equilibrates tomorrow we will likely advance diet. This might be secondary to IV fluids
-Would prefer to give patient [id number] antiemetics however QTc is elevated at 526. If necessary would use prochlorperazine. Patient is quite comfortable at the present time as he is getting lorazepam for alcohol withdrawal.
-Discussed with patient that if he has any signs of nausea to notify nursing immediately to prevent dry heaving or vomiting in light of Lucrecia-Chung tear.
-Continue pantoprazole daily
-Trend labs
-Continue ETOH withdrawal protocol
-Discussed avoidance of NSAIDs
-Also discussed ETOH cessation at length
Subjective
Subjective
Date of Service: June 04, 2023
Patient with no bowel movements since arrival. Hemoglobin is currently 7.3 down from 9.1 yesterday however patient is also receiving IV fluids at 125 cc an hour. BUN has decreased from 40 to 12 this morning patient is on a clear liquid diet.
Vital signs are stable, heart rate 80, blood pressure 137/93. Whereas yesterday he is blood pressure was as low as 93/74 and his heart rate as high as 143. Patient denies any abdominal pain, nausea, tremors and feels quite calm at the present
time. EGD performed on 06/03/2023 shows small nonbleeding Lucrecia-Chung tear with stigmata of recent bleeding. Stomach was normal. Examined duodenum normal.
Objective
Data Reviewed
Laboratory Data:
Laboratory Results
06/04/23 05:48
06/04/23 05:48
Laboratory Results
PT 14.8 Sec (11.4-14.6) H 06/03/23 01:23
INR 1.18 06/03/23 01:23
APTT 27.9 Sec (23.4-35.0) 06/03/23 01:23
Phosphorus 6.3 mg/dl (2.5-4.5) H 06/02/23 16:43
Magnesium 2.1 mg/dl (1.6-2.3) 06/02/23 16:43
Total Bilirubin 0.5 mg/dl (0.2-1.3) 06/04/23 05:48
AST 243 U/L (17-59) H 06/04/23 05:48
ALT 158 U/L (0-50) H 06/04/23 05:48
Alkaline Phosphatase 38 U/L (38-126) 06/04/23 05:48
Lipase 77 U/L (23-300) 06/02/23 16:43
Vital Signs and I&O:
Vital Signs
Temp Pulse Resp BP Pulse Ox
98.9 F 80 13 137/93 96
06/04/23 03:58 06/04/23 06:00 06/04/23 06:00 06/04/23 05:41 06/04/23 06:00
I&O
06/03/23 06/04/23 06/05/23
06:59 06:59 06:59
Intake Total 1150 / 1150 4925 / 4925
Output Total 1150 / 1150 3255 / 3255
Balance 0 / 0 1670 / 1670
Physical Exam
Physical Exam
HEENT: Anicteric
Cardiology: Normal Sinus Rhythm
Pulmonary: Clear
GI: Soft, Non Distended, Non Tender and Normal Bowel Sounds
Extremities: No Edema
Neuro: Non Focal and Other (No tremor)
--- NOTE | 2023-06-04 11:57 | W.PN.HOSP.TC ---
Today's Communication/Plan
-
Monitor vital signs and see plan
cw PPI
clears
Transfuse PRBC
add magnesium
Assessment / Plan
Assessment / Plan
Gen: NAD, AAOx3.
Eyes: EOMI, PERRLA, no scleral icterus.
Neck: supple.
CV: tachy, reg rhythm, +S1/S2, no m/r/g.
Resp: CTAB, no rales, wheezes, or rhonchi.
Abd: +BS, soft, NT, ND
Skin: No rashes.
Neuro: CN 2-12 intact, non-focal.
Psych: Normal mood and affect.
Acute blood loss anemia due to acute upper GI bleed likely due to alcoholic gastritis and NSAIDS vs peptic ulcer:
-cont PPI gtt, NPO
-was on Octreotide gtt, no off
-cw clears
-trend Hb; 7.3 today; transfuse another unit PRBC
-EGD 06/02 with clarissa childs
Acute ETOH withdrawal:
-MSAS protocol (Ativan PRN)
-cont thiamine/folate
Thrombocytopenia likely secondary to alcohol
Monitor
Elevated LFTs
Likely secondary to alcohol
Monitor
Severe anion gap metabolic acidosis:
-likely starvation ketosis
-AG now closed
-SSI/accuchecks
-no prior diagnosis of DM2, a1c 5.3
FULL/SCDs
Anticipated Discharge: Within 24 hours
Subjective/Interval History
-
Date of Service: June 04, 2023
Denies pain
Objective Data
-
Labs:
Laboratory Results
06/04/23 06/04/23
02:17 05:48
WBC 8.1
Hgb 7.5 L 7.3 L
Hct 21.4 L 21.4 L
Plt Count 116 L D
Sodium 137
Potassium 3.7
Chloride 110 H
Carbon Dioxide 22
BUN 12
Creatinine 0.7
Glucose 81
Calcium 7.9 L
Total Bilirubin 0.5
AST 243 H
ALT 158 H
Alkaline Phosphatase 38
Vital Signs:
Vital Signs
Temp Pulse Resp BP Pulse Ox
98.1 F 89 23 139/104 99
06/04/23 10:24 06/04/23 10:26 06/04/23 10:26 06/04/23 10:26 06/04/23 10:26
I&O
06/03/23 06/04/23 06/05/23
06:59 06:59 06:59
Intake Total 1150 / 1150 4925 / 4925 0 / 0
Output Total 1150 / 1150 3255 / 3255 600 / 600
Balance 0 / 0 1670 / 1670 -600 / -600
[2023-06-04] MEDS: NSS IV (12:45)
[2023-06-04 12:49] LABS: Iron 34 ug/dl (49-181); Magnesium 1.9 mg/dl (1.6-2.3)
[2023-06-04 12:51] LABS: Glucose - Point of Care 100 mg/dl (70-99)
[2023-06-04 12:57] LABS: Percent Saturation 17 % (20-50); Total Iron Binding Capacity 196 ug/dl (261-462)
[2023-06-04 14:02] LABS: Folate 16.2 ng/ml (2.76-20); Vitamin B12 749 pg/ml (239-931)
[2023-06-04 15:13] LABS: Hemoglobin 8.7 g/dL (13.0-18.0)
--- NOTE | 2023-06-04 16:09 | CM ---
Patient with Dx Acute blood loss anemia due to acute upper GI bleed, Acute ETOH withdrawal. Room air. MSAS protocol. Clears. PT Eval; no need. OT Eval; likely no need.
Met with patient and mother Tami;
the patient resides in a 2 story house with his parents.
He has been independent in ADLs and ambulation.
The patient has no DME but has access to walking sticks if needed.
PCP - Lien Gibbs
Pharmacy - [facility]
Tami states that the patient has stayed in bed all day for the past 3 months, and has not gotten out of bed for the past 3 weeks.
Patient has been unemployed.
Tami expressed concern that her son went to [facility] last year for outpatient alcohol rehab, which consisted of 1 hr once/week, and he has done AA in the past that also did not help. Mother feels patient needs a more intense Etoh program.
Mother feels that the patient has been depressed. Patient admits to feeling down but denies dark thoughts. He is not very conversant.
Mother expressed frustration saying she cannot take the patient home like this, and have him return to staying in bed all day.
Mother wants him to go to an inpatient alcohol program. Patient states objection to doing inpatient alcohol rehab saying he will be exposed to other people who will have the same alcohol problem as him.
Patient is receptive to talking to [facility].
Message to Dr Garcia and nurse Donna re; above. requested nurse to do suicidal questionnaire with the patient.
CM will hold off on referring to [facility] today.
Plan follow up tomorrow about possible [facility] referral.
--- NOTE | 2023-06-04 17:11 | PTCARENOTE ---
Rec'd pt this AM AAO X3. 1 unit PRBC givn for hgb 7.3. Repeat hgb 8.7. Pt bp elevated which he reports is his normal. Agreeable to rehab.
[2023-06-04 18:39] LABS: Glucose - Point of Care 83 mg/dl (70-99)
[2023-06-04 20:31] LABS: Glucose - Point of Care 98 mg/dl (70-99)
--- NOTE | 2023-06-04 22:52 | PTCARENOTE ---
Taking care of pt overnight. aaox3, pleasant. SR/ST on monitor. NO pain/SOB/N/V/D. Remains on RA. Clear diet. Sugars WNL. MSAS 2/3 for tremor & HR. Bp's starting to run high, will monitor. No other issues at this time. Call parks in reach.
[2023-06-05] VITALS (7 sets, daily range): BP systolic 132–154; BP diastolic 89–109
[2023-06-05] MEDS: THIAMINE INJECTION 200 MG IV ×2 (00:59→08:36)
--- NOTE | 2023-06-05 01:42 | PTCARENOTE ---
pt blood pressures running normal again, pt states theyre running high for him and would like to restart his bp meds if possible. Will pass to day shift to ask hospitalist.
[2023-06-05 05:32] LABS: % Basophils 0.9 % (0-2); % Eosinophils 2.7 % (0-6); % Immature Granulocytes 0.6 % (0-0.5); % Lymphocytes 22.8 % (20.5-51.1); % Monocytes 6.7 % (1.7-9.3); % Neutrophils 66.3 % (42.2-75.2); Absolute Basophils 0.1 10^3/uL (0-0.2); Absolute Eosinophils 0.2 10^3/uL (0-0.7); Absolute Lymphocytes 1.6 10^3/uL (1.2-3.4); Absolute Monocytes 0.5 10^3/uL (0.1-0.6); Absolute Neutrophils 4.7 10^3/uL (1.4-6.5); Hematocrit 25.6 % (39.0-52.0); Hemoglobin 9.3 g/dL (13.0-18.0); Mean Corp Hgb Conc. 36.3 g/dL (33.0-37.0); Mean Corpuscular Hgb 32.7 pg (27.0-31.0); Mean Corpuscular Volume 90.1 fL (80.0-94.0); Mean Platelet Volume 10.3 fL (7.4-10.4); Nucleated Red Blood Cells % 0.6 % (-); Platelet Count 136 10^3/uL (130-400); Red Blood Cell Count 2.84 10^6/uL (4.70-6.10); Red Cell Dist. Width 15.1 % (11.5-14.5)
[2023-06-05 06:10] LABS: ALT (SGPT) 205 U/L (0-50); AST (SGOT) 204 U/L (17-59); Albumin 3.8 g/dl (3.5-5.0); Alkaline Phosphatase 46 U/L (38-126); Blood Urea Nitrogen 8 mg/dl (9-20); Carbon Dioxide 24 mmol/L (22-30); Chloride 104 mmol/L (98-107); Estimated Creatinine Clearance > 125 ml/min; Glucose 93 mg/dl (70-99); Potassium 3.7 mmol/L (3.5-5.1); Sodium 140 mmol/L (135-145); Total Bilirubin 0.7 mg/dl (0.2-1.3); Total Protein 6.1 g/dl (6.3-8.2); eGFR > 60.00
[2023-06-05 07:33] LABS: Glucose - Point of Care 91 mg/dl (70-99)
[2023-06-05] MEDS: FOLVITE 1 MG PO (08:35)
[2023-06-05] MEDS: PROTONIX IV 40 MG IV (08:36)
[2023-06-05] MEDS: ZESTRIL 20 MG PO (08:36)
[2023-06-05] MEDS: NSS (PRESERVATIVE FREE) 10 ML IV (08:36)
--- NOTE | 2023-06-05 10:31 | W.PN.GI.CBS2 ---
Addendum entered and electronically signed by Aguila Martinez MD 06/05/23 12:01:
I saw and examined the patient.
The COLOR COATER or PA's note was reviewed and I agree with the note.
Comment: 33 yo M pmh EtOH withdrawal sz and EtOH abuse p/w hematemesis s/p EGD yesterday with [facility] with clot with Dr. Snyder.
Hb stable feels well.
Advance diet.
Change PPI to bid - do bid x 8 weeks then daily x 1 month.
Stressed to pt importance of ETOH cessation.
Elevated LFTs likely 2/2 EtOH.
GI will sign off - ok dc GI POV if tolerates diet. Call with ?s.
Original Note:
Today's Communication / Plan
-
As per plan. GI signing off
Assessment / Plan
-
33-year-old male with past medical history of hypertension, ETOH withdrawal seizure and alcohol abuse presents to the emergency room with hematemesis as well as persistent vomiting and near syncope. Patient states that he has a prolonged history of
alcoholism drinking over a gallon of vodka a week and that on he decided to try to quit again. He states he started going through withdrawal symptoms on Saturday. He states he started to have tremors and started vomiting. He states that
this was initially bilious and that on Saturday he started to note that he had black specks in it. He started having shakes and chills even more pronounced and he started feeling like he was going to faint. At this point he was brought to the
emergency room. Patient also states that for the past week he has been taking 2 Advil PM every evening to help him sleep. The patient also had melena this morning. Whereas he had not had a bowel movement in over a week. His hemoglobin has gone
down to 6.8 from 8.8 on arrival. He has received 1 unit of packed red blood cells and we are awaiting repeat CBC at this time.
Impression:
Upper GI Bleed, Lucrecia-Chung tear seen
ETOH abuse/withdrawal
Metabolic acidosis
Plan:
-Low residue soft diet as DC
-Continue pantoprazole daily
-Discussed avoidance of NSAIDs
-Also discussed ETOH cessation at length
-Nothing further from a GI perspective. Will be available as needed or by request.
Subjective
Subjective
Date of Service: June 05, 2023
Patient feeling good. Tolerated liquid diet without any difficulty. Looking forward to eating solid meal. Discussed meal choices going forward. Discussed alcohol abstinence at length again. Hemoglobin stable at 9.3. LFTs trending down.
Objective
Data Reviewed
Laboratory Data:
Laboratory Results
06/05/23 05:22
06/05/23 05:22
Laboratory Results
PT 14.8 Sec (11.4-14.6) H 06/03/23 01:23
INR 1.18 06/03/23 01:23
APTT 27.9 Sec (23.4-35.0) 06/03/23 01:23
Phosphorus 6.3 mg/dl (2.5-4.5) H 06/02/23 16:43
Magnesium 1.9 mg/dl (1.6-2.3) 06/04/23 05:48
Total Bilirubin 0.7 mg/dl (0.2-1.3) 06/05/23 05:22
AST 204 U/L (17-59) H 06/05/23 05:22
ALT 205 U/L (0-50) H 06/05/23 05:22
Alkaline Phosphatase 46 U/L (38-126) 06/05/23 05:22
Lipase 77 U/L (23-300) 06/02/23 16:43
Vital Signs and I&O:
Vital Signs
Temp Pulse Resp BP Pulse Ox
98.8 F 86 13 145/102 97
06/05/23 07:45 06/05/23 08:36 06/05/23 08:00 06/05/23 08:36 06/05/23 08:00
I&O
06/04/23 06/05/23 06/06/23
06:59 06:59 06:59
Intake Total 4925 / 4925 250 / 250
Output Total 3255 / 3255 1400 / 1400 3050 / 3050
Balance 1670 / 1670 -1150 / -1150 -3050 / -3050
Physical Exam
Physical Exam
HEENT: Anicteric
Cardiology: Normal Sinus Rhythm
Pulmonary: Clear
GI: Soft, Non Distended, Non Tender and Normal Bowel Sounds
Extremities: No Edema
Neuro: Non Focal
--- NOTE | 2023-06-05 12:07 | CM ---
Patient with Dx Acute blood loss anemia due to acute upper GI bleed, Acute ETOH withdrawal. Room air. [facility]. Diet advaned. PT Eval; no need. OT Eval; likely no need.
Spoke with PINEDA Parrish this morning; she will see the patient this afternoon and may touch base with his mother.
Plan follow up after seen by PINEDA.
[2023-06-05 12:15] LABS: Glucose - Point of Care 104 mg/dl (70-99)
--- NOTE | 2023-06-05 12:27 | W.PN.HOSP.TC ---
Today's Communication/Plan
-
Monitor vital signs and see plan
tolerated diet
Mother updated over the phone
Discharge today
Time of discharge 38-minutes
Assessment / Plan
Assessment / Plan
Gen: NAD, AAOx3.
Eyes: EOMI, PERRLA, no scleral icterus.
Neck: supple.
CV: tachy, reg rhythm, +S1/S2, no m/r/g.
Resp: CTAB, no rales, wheezes, or rhonchi.
Abd: +BS, soft, NT, ND
Skin: No rashes.
Neuro: CN 2-12 intact, non-focal.
Psych: Normal mood and affect.
Acute blood loss anemia due to acute upper GI bleed likely due to alcoholic gastritis and NSAIDS vs peptic ulcer:
-was on Octreotide gtt, no off
-Now on low-fat diet, PPI per GI . Patient will follow-up with GI outpatient
-trend Hb; 9.3 today; s/p total 3 units
-EGD 06/02 with clarissa childs
Acute ETOH withdrawal:
-MSAS protocol (Ativan PRN); no signs of withdraw
-cont thiamine/folate
Patient does not want inpatient rehab however incline to try outpatient rehab
Thrombocytopenia likely secondary to alcohol
Monitor
depressive mood at times
no SI
f/u psych outpatient
Elevated LFTs
Likely secondary to alcohol
Monitor
Severe anion gap metabolic acidosis:
-likely starvation ketosis
-AG now closed
-SSI/accuchecks
-no prior diagnosis of DM2, a1c 5.3
FULL/SCDs
Anticipated Discharge: Today
Subjective/Interval History
-
Date of Service: June 05, 2023
denies pain
Objective Data
-
Labs:
Laboratory Results
06/05/23
05:22
WBC 7.0
Hgb 9.3 L
Hct 25.6 L
Plt Count 136
Sodium 140
Potassium 3.7
Chloride 104
Carbon Dioxide 24
BUN 8 L
Creatinine 0.7
Glucose 93
Calcium 9.0
Total Bilirubin 0.7
AST 204 H
ALT 205 H
Alkaline Phosphatase 46
Vital Signs:
Vital Signs
Temp Pulse Resp BP Pulse Ox
99.6 F 86 13 145/102 97
06/05/23 11:00 06/05/23 08:36 06/05/23 08:00 06/05/23 08:36 06/05/23 08:00
I&O
06/04/23 06/05/23 06/06/23
06:59 06:59 06:59
Intake Total 4925 / 4925 250 / 250
Output Total 3255 / 3255 1400 / 1400 3050 / 3050
Balance 1670 / 1670 -1150 / -1150 -3050 / -3050
--- NOTE | 2023-06-05 12:43 | W.DCSUMMARY ---
Discharge Summary
Discharge Data
Date of Admission: 06/02/23
Date of Discharge: 06/05/23
-
Pending Results: No
Hospital Course
33-year-old male with past medical history of alcohol use with abuse came to the hospital with acute blood loss anemia due to acute upper GI bleed. Patient was initially started on octreotide and PPI drip. Patient also required blood transfusions
on this hospitalization. EGD 06/02 was done which showed Lucrecia-Chung tear. Gastroenterology recommended patient to follow-up with them outpatient. For his acute withdrawal he was treated with Ativan as needed. Patient refused to go to inpatient
rehab for his alcohol. He also had thrombocytopenia which was likely thought was secondary to alcohol. Patient also had some LFTs elevation which was also attributed to alcohol. Over time patient symptoms continue to improve and he was able to
tolerate regular diet. Since he was feeling better, he was then discharged home with instructions to follow-up with all his physicians outpatient.
Discharge Plan
-
Patient Disposition: Home (Routine Discharge)
Discharge Diagnosis/Procedures: Hematemesis secondary to Lucrecia-Chung tear
Elevated liver function test
Thrombocytopenia
Mild alcohol withdrawal
Diet: As tolerated
Activity: As tolerated
Driving Restrictions: As prior to admission
Bathing Restrictions: None
Blood Work: CBC next week with primary care provider
Referrals:
Lien Gibbs CRNP [Family Provider] - in less than 1 week
Juan Manuel Snyder MD [Active] -
Prescriptions:
New
pantoprazole [Protonix] 40 mg tablet,delayed release (DR/EC)
40 mg PO BID Qty: 60 0RF
Continued
folic acid 1 mg Tablet
1 mg PO DAILY Qty: 12 0RF
multivitamin Tablet
1 tab PO DAILY Qty: 30 0RF
cyanocobalamin (vitamin B-12) 1,000 mcg Tablet
1,000 mcg PO DAILY
ascorbic acid (vitamin C) [Vitamin C] 500 mg Tablet
500 mg PO DAILY
lisinopril 10 mg Tablet
20 mg PO DAILY
Patient Comments:
06/02/2023, pt. non-compliant with this med.; last filled on 09/26/2022 for 90-day supply.
cholecalciferol (vitamin D3)
1 tab PO DAILY PRN (Reason: supplement)
thiamine HCl (vitamin B1) 100 mg tablet
100 mg PO DAILY
Discontinued
Advil PM 200-38 mg Tablet
2 tab PO HS
Discharge Orders:
Discharge Patient (As Directed); Ordered 06/05/23
Ordered By: Maximo Garcia
Discharge Date and Time
Discharge Date/Time: 06/05/23 14:01
== END 2023-06-05 14:01 | disposition home or self-care (01) | DRG 369 ==
LOC: IMU 21:17
PROVIDERS: Clinical Nurse Specialist Family Health; Internal Medicine Gastroenterology; ADMITTING PHYSICIAN Internal Medicine; ATTENDING PHYSICIAN Internal Medicine; CONSULT PHYSICIAN Specialist; EMERGENCY PHYSICIAN Emergency Medicine; FAMILY PHYSICIAN Nurse Practitioner Family
PROC: 30233N1 Transfusion of Nonautologous Red Blood Cells into Peripheral Vein, Percutaneous Approach (ICD-10-PCS; 2023-06-03)
PROC: 0DJ08ZZ Inspection of Upper Intestinal Tract, Via Natural or Artificial Opening Endoscopic (ICD-10-PCS; 2023-06-03)
DX: K22.6 Gastro-esophageal laceration-hemorrhage syndrome (principal); D62 Acute posthemorrhagic anemia; E87.29 Other acidosis; F10.239 Alcohol dependence with withdrawal, unspecified; D64.9 Anemia, unspecified; K29.00 Acute gastritis without bleeding; K29.20 Alcoholic gastritis without bleeding; I10 Essential (primary) hypertension; D69.6 Thrombocytopenia, unspecified
CPT/HCPCS: 80053; 80306; 80307; 81003; 82010; 82607; 82728; 82746; 82962; 82977; 83036; 83540; 83550; 83690; 83735; 84100; 85014; 85018; 85025; 85610; 85730; 86850; 86900; 86901; 86920; 93005; 96361; 96374; 96375; 97162; 97166; 99291; P9016